=== PATIENT | male | born 1940 | race Caucasian/White ===

== ENCOUNTER → 2017-11-24 | Outpatient (CLI) | payer OTHER, MEDICARE ==
[~2017-11-24] MED LIST: ASPI-496 PO; LATA2.5D3 EACHEYE; METF500T4 PO; SIMV40TA3 PO; TIMO1DRO2 EACHEYE
[2017-11-24 16:28] LABS: MICROSCOPIC AUTO
[2017-11-24 16:31] LABS: ALANINE AMINOTRANSFERASE 35 U/L (12-78); ALBUMIN 4.1 g/dL (3.4-5.0); ANION GAP 7 mmol/L (5-15); CALCIUM 9.3 mg/dL (8.5-10.1); CHLORIDE 105 mmol/L (98-107); CREATININE 1.04 mg/dL (0.7-1.3)
[2017-11-24 16:32] LABS: CULTURE INDICATED? NO
[2017-11-24 16:34] LABS: ALKALINE PHOSPHATASE 61 U/L (45-117); BILIRUBIN,TOTAL 0.7 mg/dL (0.2-1.0); TOTAL PROTEIN 7.4 g/dL (6.4-8.2)
== END | disposition home or self-care (01) ==
LOC: STAR 15:03
PROVIDERS: ATTEND Orthopaedic Surgery
DX: Z01.818 Encounter for other preprocedural examination (principal); R94.31 Abnormal electrocardiogram [ECG] [EKG]; M17.0 Bilateral primary osteoarthritis of knee
CPT/HCPCS: 36415; 80053; 81001; 93005

== ENCOUNTER 2017-11-29 12:03 | Inpatient (IN) | payer OTHER, MEDICARE ==
[~2017-11-29] VITALS: Ht 188 cm; Wt 100.9 kg
[2017-11-29 13:40] VITALS: BP 144/86
[2017-11-29] MEDS ORDERED: LACTATED RINGERS 1,000 ML IV SCH (14:02)
[2017-11-29] MEDS ORDERED: FENTANYL PF 250 MCG/5ML ONE ×3 (14:40→15:32)
[2017-11-29] MEDS ORDERED: CEFAZOLIN 1,000 MG ONE (15:32)
[2017-11-29] MEDS ORDERED: DEXAMETHASONE 4 MG/ML, 1ML ONE ×2 (15:38)
[2017-11-29] MEDS ORDERED: VANCOMYCIN 1,000 MG ONE (15:42)
[2017-11-29] MEDS ORDERED: KETOROLAC 60 MG/2 ML ONE ×2 (15:45→15:58)
[2017-11-29] MEDS ORDERED: EPINEPHRINE 1 MG/ML, 1ML ONE ×2 (15:46→15:58)
[2017-11-29] MEDS ORDERED: TRANEXAMIC ACID 100 MG/ML, 10ML ONE (15:46)
[2017-11-29] MEDS ORDERED: ROPIvacaine/PF 0.5%, 20 ML ONE ×2 (15:46→15:58)
[2017-11-29] MEDS ORDERED: SODIUM CHLORIDE 0.9% 100 ML ONE ×2 (15:46→15:58)
[2017-11-29] MEDS ORDERED: ONDANSETRON 2MG/ML, 2ML ONE (17:26)
[2017-11-29] MEDS ORDERED: PROPOFOL 10 MG/ML, 20ML ONE ×2 (17:26)
[2017-11-29] MEDS ORDERED: ROCURONIUM 10 MG/ML,10ML ONE (17:26)
[2017-11-29] MEDS ORDERED: FENTANYL PF 100 MCG/2ML IV PRN (17:30)
[2017-11-29] MEDS ORDERED: OXYcodone 5 MG/5 ML ORAL.SOL UDC PO PRN (17:30)
[2017-11-29] MEDS ORDERED: LABETALOL 5MG/ML, 20ML IV PRN (17:30)
[2017-11-29] MEDS ORDERED: ACETAMINOPHEN 325 MG TABLET PO PRN (17:30)
[2017-11-29] MEDS ORDERED: PROMETHAZINE 25 MG/ML, 1ML IV PRN (17:30)
[2017-11-29] MEDS ORDERED: HYDROmorphone 1 MG/ML, 1ML IV PRN (17:30)
[2017-11-29] MEDS ORDERED: ONDANSETRON 2MG/ML, 2ML IVPush PRN ×2 (17:30→21:30)
[2017-11-29] MEDS ORDERED: hydrALAzine 20 MG/ML, 1ML IV PRN (17:30)
[2017-11-29] MEDS ORDERED: MEPERIDINE/PF 25MG/0.5ML IVPush PRN (17:30)
[2017-11-29] MEDS ORDERED: ACETAMINOPHEN 650 MG/20.3 ML UDC ONE (18:17)
[2017-11-29] MEDS ORDERED: OXYcodone 5 MG/5 ML ORAL.SOL UDC ONE (18:17)
[2017-11-29] MEDS ORDERED: BISACODYL 10 MG SUPP PR PRN (21:30)
[2017-11-29] MEDS ORDERED: ONDANSETRON ODT 4 MG PO PRN (21:30)
[2017-11-29] MEDS ORDERED: ALUMINUM/MAG/SIMETHICONE 30 ML UDC PO PRN (21:30)
[2017-11-29] MEDS ORDERED: OXYcodone IR 5MG TABLET PO PRN (21:30)
[2017-11-29] MEDS ORDERED: HYDROcodone/APAP 10/325 MG TABLET PO PRN (21:30)
[2017-11-29] MEDS ORDERED: SENNA/DOCUSATE TABLET PO PRN (21:30)
[2017-11-29] MEDS ORDERED: MAGNESIUM HYDROXIDE 8%, 30ML UDC PO PRN (21:30)
[2017-11-29] MEDS ORDERED: DIAZEPAM 5 MG TABLET PO PRN (21:30)
[2017-11-29] MEDS ORDERED: morphine SULFATE 10 MG/ML, 1ML IV PRN (21:30)
[2017-11-29] MEDS ORDERED: DIPHENHYDRAMINE 25 MG CAPSULE PO PRN (21:30)
[2017-11-29] MEDS: LACTATED RINGERS 1,000 ML IV SCH (22:39)
[2017-11-29] MEDS: CEFAZOLIN PMX 2GM/100ML 100 ML IVPB SCH (23:18)
[2017-11-29] MEDS: metFORMIN 500 MG TABLET PO SCH (23:18)
[2017-11-29] MEDS: ACETAMINOPHEN 325 MG TABLET PO PRN (23:28)
[2017-11-29 23:47] VITALS: BP 106/58
[2017-11-30] MEDS: LACTATED RINGERS 1,000 ML IV SCH ×2 (03:31→15:00)
[2017-11-30] MEDS: ACETAMINOPHEN 325 MG TABLET PO PRN ×2 (05:04→11:02)
[2017-11-30 05:56] VITALS: BP 95/40
[2017-11-30] MEDS ORDERED: ASPIRIN 325 MG TABLET EC PO SCH (06:00)
[2017-11-30 06:03] LABS: CHLORIDE 106 mmol/L (98-107)
[2017-11-30 06:18] LABS: ALBUMIN 3.1 g/dL (3.4-5.0); ANION GAP 9 mmol/L (5-15); CALCIUM 8.3 mg/dL (8.5-10.1); CREATININE 1.27 mg/dL (0.7-1.3)
[2017-11-30] MEDS: CEFAZOLIN PMX 2GM/100ML 100 ML IVPB SCH (06:54)
[2017-11-30] MEDS: metFORMIN 500 MG TABLET PO SCH (08:32)
[2017-11-30] MEDS ORDERED: MULTIVITAMINS/MINERALS TABLET PO SCH (09:00)
[2017-11-30] MEDS ORDERED: DOCUSATE 100 MG CAPSULE PO SCH (09:00)
[2017-11-30] MEDS ORDERED: TIMOLOL OPHTH 0.5%, 5ML EACHEYE SCH (09:00)
[2017-11-30] MEDS ORDERED: ASPI-650 PO (15:36)
[2017-11-30 15:59] VITALS: BP 129/61
[2017-11-30] MEDS ORDERED: OXYC-307 PO (16:23)
[2017-11-30] MEDS ORDERED: SIMVASTATIN 40 MG TABLET PO SCH (21:00)
[2017-11-30] MEDS ORDERED: LATANOPROST OPHTH 0.005%, 2.5ML EACHEYE SCH (21:00)
== END 2017-11-30 16:30 | disposition home or self-care (01) | DRG 470 ==
LOC: ORIP 13:02 → 4NOR 20:39 → DCLOUNGE 11-30 16:20
PROVIDERS: ADMIT Orthopaedic Surgery; ATTEND Orthopaedic Surgery
PROC: 0SRD0J9 Replacement of Left Knee Joint with Synthetic Substitute, Cemented, Open Approach (ICD-10-PCS; principal; 2017-11-29 15:30)
DX: M17.12 Unilateral primary osteoarthritis, left knee (principal)
CPT/HCPCS: 36415; 80048; 82040; 82962; 85014; 85018; C1713; J0171; J0690; J1100; J1885; J2405; J2704; J2795; J3010; J3370; C1776; J7120

== ENCOUNTER → 2018-02-01 | Outpatient (CLI) | payer OTHER, MEDICARE ==
[~2018-02-01] MED LIST changes: +ASPI-650 PO; +OXYC-307 PO
== END ==
LOC: RAD 14:51
PROVIDERS: ATTEND Orthopaedic Surgery
DX: M79.662 Pain in left lower leg (principal); Z96.652 Presence of left artificial knee joint

== ENCOUNTER → 2019-04-26 | Outpatient (CLI) | payer OTHER, MEDICARE ==
[~2019-04-26] MED LIST changes: +FENTANYL PF 100 MCG/2ML ONE; +METF500T17 PO; -METF500T4 PO
== END | disposition home or self-care (01) ==
LOC: CVU 14:57
PROVIDERS: ATTEND General Practice
DX: I08.8 Other rheumatic multiple valve diseases (principal); I48.92 Unspecified atrial flutter
CPT/HCPCS: 71046; 93306

== ENCOUNTER 2019-06-28 08:21 | Outpatient (CLI) | payer OTHER, MEDICARE | END 2019-06-28 23:59 | disposition home or self-care (01) | LOC: CFH 08:21 | PROVIDERS: ATTEND Internal Medicine Cardiovascular Disease | DX: I48.92 Unspecified atrial flutter (principal); R60.0 Localized edema | CPT/HCPCS: 78452; 93017; A9502; J2785 ==

== ENCOUNTER 2019-07-11 06:01 | Day surgery (SDC) | payer OTHER, MEDICARE ==
[~2019-07-11] VITALS: Ht 188 cm; Wt 104.5 kg
[2019-07-11 06:19] VITALS: BP 155/108
== END 2019-07-11 09:00 | disposition home or self-care (01) ==
LOC: CACL 06:01
PROVIDERS: ATTEND Internal Medicine Cardiovascular Disease
DX: I48.92 Unspecified atrial flutter (principal); E11.9 Type 2 diabetes mellitus without complications; Z72.89 Other problems related to lifestyle; Z79.84 Long term (current) use of oral hypoglycemic drugs; Z79.01 Long term (current) use of anticoagulants; Z79.899 Other long term (current) drug therapy; Z96.659 Presence of unspecified artificial knee joint; Z82.3 Family history of stroke
CPT/HCPCS: 36415; 80048; 92960; J2704

== ENCOUNTER 2019-12-28 06:28 | Observation (INO) | payer OTHER, MEDICARE ==
[2019-12-26 08:19] VITALS: BP 150/85
[2019-12-26 08:52] LABS: BASOPHILS # (AUTO) 0.02 x10^3/uL (0-0.1); BASOPHILS % (AUTO) 0 % (0-1); EOSINOPHILS # (AUTO) 0.28 x10^3/uL (0-0.4); EOSINOPHILS % (AUTO) 5 % (1-7); LYMPHOCYTES # (AUTO) 1.06 x10^3/uL (1-3.4); LYMPHOCYTES % (AUTO) 19 % (22-44); MD NO; MEAN CORPUSCULAR HEMOGLOBIN 33.2 pg (27.5-34.5); MEAN CORPUSCULAR HGB CONC 33.7 g/dL (33.2-36.2); MEAN CORPUSCULAR VOLUME 98.7 fL (81-97); MEAN PLATELET VOLUME 7.6 fL (7.4-10.4); MONOCYTES # (AUTO) 0.48 x10^3/uL (0.2-0.8); MONOCYTES % (AUTO) 9 % (2-9); NEUTROPHILS % (AUTO) 67 % (42-75); PLATELET COUNT 251 x10^3/uL (130-400); RED BLOOD COUNT 5.21 x10^6/uL (4.38-5.82); RED CELL DISTRIBUTION WIDTH 14.4 % (9.4-14.8)
[2019-12-26 08:53] LABS: ANION GAP 6 mmol/L (5-15); CALCIUM 9.3 mg/dL (8.5-10.1); CHLORIDE 107 mmol/L (98-107); CREATININE 1.56 mg/dL (0.7-1.3)
[~2019-12-28] VITALS: Ht 190.5 cm; Wt 100.0 kg
[~2019-12-28 06:28] MED LIST changes: +APIX5TAB PO; +DRON400T PO; -FENTANYL PF 100 MCG/2ML ONE; +SIMV40TA20 PO; -SIMV40TA3 PO
[2019-12-28] MEDS ORDERED: SODIUM CHLORIDE 0.9% 1,000 ML IV SCH (06:41)
[2019-12-28] MEDS ORDERED: SODIUM CHLORIDE 0.9% 1,000 ML IV ONE (07:00)
[2019-12-28] MEDS ORDERED: PROPOFOL 50 ML ONE (07:46)
[2019-12-28] MEDS ORDERED: FENTANYL PF 250 MCG/5ML ONE (07:46)
[2019-12-28] MEDS ORDERED: LIDOCAINE 2%, 20ML ONE (07:57)
[2019-12-28] MEDS ORDERED: ONDANSETRON 2MG/ML, 2ML ONE (10:58)
[2019-12-28] MEDS ORDERED: HEPARIN 1,000 UNITS/ML, 10ML ONE ×2 (10:58)
[2019-12-28] MEDS ORDERED: SUCCINYLCHOLINE 20 MG/ML, 10ML ONE (10:58)
[2019-12-28] MEDS ORDERED: ROCURONIUM 10MG/ML,5ML ONE (10:58)
[2019-12-28] MEDS ORDERED: APIXABAN 5 MG TABLET ONE (11:15)
[2019-12-28] MEDS ORDERED: APIXABAN 5 MG TABLET PO SCH (11:30)
[2019-12-28] MEDS ORDERED: OXYcodone 5 MG/5 ML ORAL.SOL UDC PO PRN (11:30)
[2019-12-28] MEDS ORDERED: DIPHENHYDRAMINE 50 MG/ML, 1ML IVPush PRN (11:30)
[2019-12-28] MEDS ORDERED: FENTANYL PF 100 MCG/2ML IV PRN (11:30)
[2019-12-28] MEDS ORDERED: ONDANSETRON 2MG/ML, 2ML IV PRN (11:30)
[2019-12-28] MEDS ORDERED: hydrALAzine 20 MG/ML, 1ML IV PRN (11:30)
[2019-12-28] MEDS ORDERED: PROMETHAZINE 25 MG/ML, 1ML IV PRN (11:30)
[2019-12-28] MEDS ORDERED: MORPHINE SULFATE 4 MG/ML, 1ML IVPush PRN (11:30)
[2019-12-28] MEDS ORDERED: METOPROLOL 1 MG/ML, 5ML IV PRN (11:30)
[2019-12-28] MEDS: APIXABAN 5 MG TABLET PO SCH ×2 (11:30→21:39)
[2019-12-28] MEDS ORDERED: EPHEDRINE 50 MG/ML, 1ML IM PRN (11:30)
[2019-12-28] MEDS ORDERED: DIAZEPAM 5 MG/ML, 2ML IVPush PRN (11:30)
[2019-12-28] MEDS ORDERED: ACETAMINOPHEN 325 MG TABLET PO PRN (11:30)
[2019-12-28] MEDS ORDERED: ONDANSETRON ODT 8 MG PO PRN (11:30)
[2019-12-28 13:26] VITALS: BP 138/76
[2019-12-28 13:35] VITALS: BP 125/75
[2019-12-28] MEDS: ACETAMINOPHEN 325 MG TABLET PO PRN ×2 (17:14→21:39)
[2019-12-28 19:32] VITALS: BP 126/72
[2019-12-28] MEDS: TIMOLOL OPHTH 0.5%, 5ML EACHEYE SCH (21:00)
[2019-12-28] MEDS ORDERED: LATANOPROST OPHTH 0.005%, 2.5ML EACHEYE SCH (21:00)
[2019-12-28] MEDS: metFORMIN 500 MG TABLET PO SCH (21:38)
[2019-12-28] MEDS: DRONEDARONE 400MG TABLET PO SCH (21:40)
[2019-12-29 01:02] VITALS: BP 102/52
[2019-12-29 07:55] VITALS: BP 120/75
[2019-12-29] MEDS: TIMOLOL OPHTH 0.5%, 5ML EACHEYE SCH (08:45)
[2019-12-29] MEDS: DRONEDARONE 400MG TABLET PO SCH (08:46)
[2019-12-29] MEDS: metFORMIN 500 MG TABLET PO SCH (08:46)
[2019-12-29] MEDS: APIXABAN 5 MG TABLET PO SCH (08:46)
[2019-12-29] MEDS ORDERED: ACET325T26 PO (08:49)
== END 2019-12-29 11:03 | disposition home or self-care (01) ==
LOC: CACL 06:28 → ORIP 11:52 → 5SO 12:39 → DCLOUNGE 12-29 10:52
PROVIDERS: ADMIT Internal Medicine Cardiovascular Disease; ATTEND Internal Medicine Cardiovascular Disease
DX: I48.92 Unspecified atrial flutter (principal); I48.91 Unspecified atrial fibrillation; E11.9 Type 2 diabetes mellitus without complications; D68.69 Other thrombophilia; Z79.899 Other long term (current) drug therapy; Z79.84 Long term (current) use of oral hypoglycemic drugs
CPT/HCPCS: 36415; 71046; 80048; 85025; 85347; 93306; 93312; 93321; 93325; 93613; 93655; 93656; 93662; C1730; C1732; C1759; C1766; C1893; C1894; G0378; J0330; J1644; J2405; J2704; J3010; J3490; 93462

== ENCOUNTER 2020-02-16 11:57 | Outpatient (CLI) | payer OTHER, MEDICARE ==
[~2020-02-16 11:57] MED LIST changes: +ACET325T26 PO
[2020-02-16 12:51] LABS: ANION GAP 6 mmol/L (5-15); CALCIUM 9.6 mg/dL (8.5-10.1); CHLORIDE 105 mmol/L (98-107); CREATININE 1.49 mg/dL (0.7-1.3)
[2020-02-16 13:42] LABS: BASOPHILS # (AUTO) 0.03 x10^3/uL (0-0.1); BASOPHILS % (AUTO) 1 % (0-1); EOSINOPHILS # (AUTO) 0.18 x10^3/uL (0-0.4); EOSINOPHILS % (AUTO) 3 % (1-7); LYMPHOCYTES # (AUTO) 0.96 x10^3/uL (1-3.4); LYMPHOCYTES % (AUTO) 18 % (22-44); MD NO; MEAN CORPUSCULAR HEMOGLOBIN 33.1 pg (27.5-34.5); MEAN CORPUSCULAR HGB CONC 33.6 g/dL (33.2-36.2); MEAN CORPUSCULAR VOLUME 98.3 fL (81-97); MEAN PLATELET VOLUME 7.9 fL (7.4-10.4); MONOCYTES % (AUTO) 7 % (2-9); NEUTROPHILS # (AUTO) 3.92 x10^3/uL (1.8-6.8); NEUTROPHILS % (AUTO) 71 % (42-75); PLATELET COUNT 315 x10^3/uL (130-400); RED BLOOD COUNT 4.89 x10^6/uL (4.38-5.82); RED CELL DISTRIBUTION WIDTH 14.9 % (9.4-14.8)
== END 2020-02-16 23:59 | disposition home or self-care (01) ==
LOC: CFH 11:57 → RAD 23:59
PROVIDERS: ATTEND Internal Medicine Cardiovascular Disease
DX: E11.9 Type 2 diabetes mellitus without complications (principal); I48.4 Atypical atrial flutter; I48.92 Unspecified atrial flutter; L02.92 Furuncle, unspecified
CPT/HCPCS: 36415; 71046; 80048; 85025